=== PATIENT | male | born 1955 | race Caucasian/White ===

== ENCOUNTER 2023-05-30 00:14 | Inpatient (IN) | payer MEDICARE, BC ==
[~2023-05-30] VITALS: Ht 177.8 cm; Wt 57.2 kg
[2023-05-30] MEDS ORDERED: IV NS 0.9% 500 ML BAG IV ONE (01:00)
[2023-05-30 01:18] LABS: BASOPHILS % (AUTO) 0.3 % (0.0-2.0); EOSINOPHILS % (AUTO) 0.5 % (0.0-6.0); HEMATOCRIT 40 % (39-51); HEMOGLOBIN 13.2 g/dL (13.5-17.5); LYMPHOCYTES # (AUTO) 2.3 K/uL (0.8-4.8); LYMPHOCYTES % (AUTO) 25.4 % (20.0-44.0); MEAN CORPUSCULAR HEMOGLOBIN 32 PG (26.0-33.0); MEAN CORPUSCULAR HGB CONC 33 g/dl (31.0-36.0); MEAN CORPUSCULAR VOLUME 97 fL (80-96); MONOCYTES # (AUTO) 0.7 K/uL (0.1-1.30); MONOCYTES % (AUTO) 7.9 % (2.0-12.0); NEUTROPHILS % (AUTO) 65.9 % (43.0-81.0); PLATELET COUNT (AUTO) 249 K/uL (150-450); RED BLOOD CELL COUNT(AUTO) 4.12 MIL/uL (4.5-6.0); RED CELL DISTRIBUTION WIDTH 14.6 % (11.5-15.0); WHITE BLOOD COUNT (AUTO) 9.1 K/uL (4.3-11.0)
[2023-05-30 01:31] LABS: CALCIUM, SERUM 9.4 mg/dL (8.5-10.1); CARBON DIOXIDE 24 mmol/L (21-32); CHLORIDE 100 mmol/L (98-107); CREATININE 0.9 mg/dL (0.6-1.3); GLUCOSE 91 mg/dL (74-106); SODIUM SERUM 138 mmol/L (136-145); UREA NITROGEN, BLOOD 17 mg/dL (7-18)
[2023-05-30 01:43] LABS: POTASSIUM 2.8 mmol/L (3.5-5.1)
[2023-05-30] MEDS ORDERED: POTASSIUM CHLORIDE 20 MEQ TAB.PRT.SR PO ONE ×2 (03:30→03:38)
[2023-05-30] MEDS ORDERED: IV NS 0.9% 1,000 ML BAG IV ONE (03:30)
[2023-05-30] MEDS ORDERED: MAGNESIUM HYDROXIDE 30 ML UDC PO PRN (07:00)
[2023-05-30] MEDS ORDERED: MAG HYDROX/AL HYDROX/SIMETH 30 ML UDC PO PRN (07:00)
[2023-05-30] MEDS ORDERED: ZOLPIDEM TARTRATE 5 MG TABLET PO PRN (07:00)
[2023-05-30] MEDS ORDERED: ACETAMINOPHEN 325 MG TABLET PO PRN (07:00)
[2023-05-30] MEDS ORDERED: ONDANSETRON HCL/PF 4 MG/2 ML VIAL IVP PRN (07:00)
[2023-05-30] MEDS ORDERED: Z GUARD REMEDY 4 OZ OINT TP PRN (07:00)
[2023-05-30] MEDS: ENOXAPARIN SODIUM 40 MG/0.4 ML DISP.SYRIN SQ SCH ×2 (09:00→11:50)
[2023-05-30] MEDS ORDERED: TAMS-12 PO (09:23)
[2023-05-30] MEDS ORDERED: OLAN20TA3 PO (09:23)
[2023-05-30] MEDS ORDERED: MIRT-90 PO (09:23)
[2023-05-30] MEDS: PANTOPRAZOLE 40 MG TABLET.DR PO SCH (11:50)
[2023-05-30 12:42] LABS: CALCIUM, SERUM 9.4 mg/dL (8.5-10.1); POTASSIUM 4.3 mmol/L (3.5-5.1)
[2023-05-30 14:02] VITALS: BP 129/82; TEMP 98.2; O2SAT 97
[2023-05-30] MEDS: IV 1/2NS 1000 ML 1,000 ML IV PRN (14:51)
[2023-05-30 16:04] VITALS: BP 129/87; TEMP 98.1; O2SAT 96
[2023-05-30 19:00] VITALS: BP 114/76; TEMP 98.3; O2SAT 96
[2023-05-31] MEDS: IV 1/2NS 1000 ML 1,000 ML IV PRN (05:38)
[2023-05-31 06:22] LABS: BASOPHILS % (AUTO) 0.5 % (0.0-2.0); EOSINOPHILS # (AUTO) 0.1 K/uL (0.0-0.7); HEMATOCRIT 36 % (39-51); HEMOGLOBIN 11.8 g/dL (13.5-17.5); LYMPHOCYTES # (AUTO) 2.2 K/uL (0.8-4.8); LYMPHOCYTES % (AUTO) 33.2 % (20.0-44.0); MEAN CORPUSCULAR HEMOGLOBIN 32 PG (26.0-33.0); MEAN CORPUSCULAR HGB CONC 33 g/dl (31.0-36.0); MEAN CORPUSCULAR VOLUME 97 fL (80-96); MONOCYTES # (AUTO) 0.6 K/uL (0.1-1.30); MONOCYTES % (AUTO) 9.2 % (2.0-12.0); NEUTROPHILS # (AUTO) 3.8 K/uL (1.8-8.9); NEUTROPHILS % (AUTO) 56.1 % (43.0-81.0); PLATELET COUNT (AUTO) 212 K/uL (150-450); RED BLOOD CELL COUNT(AUTO) 3.66 MIL/uL (4.5-6.0); RED CELL DISTRIBUTION WIDTH 14.5 % (11.5-15.0); WHITE BLOOD COUNT (AUTO) 6.8 K/uL (4.3-11.0)
[2023-05-31 06:54] LABS: CALCIUM, SERUM 8.9 mg/dL (8.5-10.1); CREATININE 0.8 mg/dL (0.6-1.3); MAGNESIUM 1.9 mg/dL (1.8-2.4); PHOSPHORUS 2.4 mg/dL (2.5-4.9); POTASSIUM 3.3 mmol/L (3.5-5.1)
[2023-05-31 07:01] LABS: THYROID STIMULATING HORMONE 1.435 uIU/mL (0.358-3.74)
[2023-05-31 08:00] VITALS: BP 130/93; TEMP 98.1; O2SAT 98
[2023-05-31] MEDS ORDERED: POTASSIUM CHLORIDE 20 MEQ TAB.PRT.SR PO ONE (08:00)
[2023-05-31] MEDS: ENOXAPARIN SODIUM 40 MG/0.4 ML DISP.SYRIN SQ SCH (09:00)
[2023-05-31] MEDS: PANTOPRAZOLE 40 MG TABLET.DR PO SCH (09:22)
== END 2023-05-31 13:31 | disposition home or self-care (01) | DRG 640 ==
LOC: ER 00:15 → TELE 08:00
PROVIDERS: ADMIT Internal Medicine; ATTEND Internal Medicine
DX: E86.0 Dehydration (principal); E43 Unspecified severe protein-calorie malnutrition; Z68.1 Body mass index [BMI] 19.9 or less, adult; E87.6 Hypokalemia; E88.09 Other disorders of plasma-protein metabolism, not elsewhere classified; F32.A Depression, unspecified
CPT/HCPCS: 36415; 71045-TC; 80048-TC; 83735-TC; 84100-TC; 84443-TC; 84484-TC; 85025-TC; 92526; 92611-TC; A4223; G0378; J1650; J3490; J7030

== ENCOUNTER 2023-06-11 15:40 | Emergency (ER) | payer MEDICARE, BC ==
[~2023-06-11] VITALS: Ht 167.6 cm; Wt 59.0 kg
[~2023-06-11 15:40] MED LIST: MIRT-90 PO; OLAN20TA3 PO; TAMS-12 PO
[2023-06-11] MEDS ORDERED: IV NS 0.9% 1,000 ML BAG IV ONE (17:30)
[2023-06-11 17:50] LABS: BASOPHILS % (AUTO) 0.5 % (0.0-2.0); EOSINOPHILS % (AUTO) 0.1 % (0.0-6.0); HEMATOCRIT 39 % (39-51); HEMOGLOBIN 12.6 g/dL (13.5-17.5); LYMPHOCYTES # (AUTO) 1.6 K/uL (0.8-4.8); LYMPHOCYTES % (AUTO) 26.7 % (20.0-44.0); MEAN CORPUSCULAR HEMOGLOBIN 32 PG (26.0-33.0); MEAN CORPUSCULAR HGB CONC 33 g/dl (31.0-36.0); MEAN CORPUSCULAR VOLUME 99 fL (80-96); MONOCYTES # (AUTO) 0.5 K/uL (0.1-1.30); MONOCYTES % (AUTO) 8.7 % (2.0-12.0); NEUTROPHILS # (AUTO) 3.9 K/uL (1.8-8.9); PLATELET COUNT (AUTO) 236 K/uL (150-450); RED BLOOD CELL COUNT(AUTO) 3.89 MIL/uL (4.5-6.0); RED CELL DISTRIBUTION WIDTH 14.9 % (11.5-15.0); WHITE BLOOD COUNT (AUTO) 6.2 K/uL (4.3-11.0)
[2023-06-11 18:17] LABS: CALCIUM, SERUM 9.8 mg/dL (8.5-10.1); CARBON DIOXIDE 23 mmol/L (21-32); CHLORIDE 104 mmol/L (98-107); GLUCOSE 99 mg/dL (74-106); POTASSIUM 4.1 mmol/L (3.5-5.1); SODIUM SERUM 139 mmol/L (136-145); UREA NITROGEN, BLOOD 11 mg/dL (7-18)
[2023-06-11 18:23] LABS: ALANINE AMINOTRANSFERASE 24 U/L (12-78); ALBUMIN 4.6 g/dL (3.4-5.0); ALKALINE PHOSPHATASE 85 U/L (46-116); ASPARTATE AMINOTRANSFERASE 26 U/L (15-37); BILIRUBIN,DIRECT 0.4 mg/dL (0.0-0.2); BILIRUBIN,TOTAL 1.7 mg/dL (0.2-1.0); TOTAL PROTEIN, SERUM 7.7 g/dL (6.4-8.2)
[2023-06-11 18:28] LABS: SALICYLATE < 2.3 mg/dL (2.8-20.0)
[2023-06-11 18:29] LABS: ALCOHOL, BLOOD < 3 mg/dL (0-10)
[2023-06-11 18:51] LABS: ACETAMINOPHEN 0 ug/ml (10-30)
[2023-06-11 19:29] LABS: APPEARANCE,URINE CLEAR (CLEAR); BILIRUBIN,URINE 1+ (NEGATIVE); BLOOD, URINE NEGATIVE Ery/uL (NEGATIVE); COLOR,URINE ORANGE (YELLOW); KETONES,URINE 2+ mg/dL (NEGATIVE); LEUKOCYTE ESTERASE ,URINE NEGATIVE (NEGATIVE); NITRITE, URINE POSITIVE (NEGATIVE); PH,URINE 5.5 (5.0-8.0); PROTEIN,URINE TRACE mg/dl (NEGATIVE); UGLUCOSE TRACE mg/dL (NEGATIVE)
[2023-06-11 19:46] LABS: ADD URINE CULTURE YES; RBC,URINE 0-2 /HPF (0-2); WBC,URINE 0-2 /HPF (0-3)
[2023-06-11 19:47] LABS: BACTERIA,URINE 1+ /HPF (None Seen); CALCIUM OXALATE CRYSTALS,UR Few /HPF (None Seen); MUCUS,URINE Few /LPF (None Seen); SQUAMOUS EPITHELIAL CELL,UR None Seen /HPF (None Seen)
[2023-06-11 19:54] LABS: AMPHETAMINE, URINE NEGATIVE (NEGATIVE); BARBITURATE, URINE NEGATIVE (NEGATIVE); BENZODIAZEPINE, URINE NEGATIVE (NEGATIVE); CANNABINOID, URINE NEGATIVE (NEGATIVE); COCCAINE, URINE NEGATIVE (NEGATIVE); OPIATE, URINE NEGATIVE (NEGATIVE); PHENCYCLIDINE SCREEN,URINE NEGATIVE (NEGATIVE)
[2023-06-11 21:19] VITALS: BP 120/80; TEMP 97.9; O2SAT 97
[2023-07-09] MEDS ORDERED: LACT-246 PO (09:44)
== END 2023-06-11 21:19 | disposition home or self-care (01) ==
LOC: ER 15:56
DX: F32.A Depression, unspecified (principal); F41.9 Anxiety disorder, unspecified; Z20.822 Contact with and (suspected) exposure to COVID-19; Z79.899 Other long term (current) drug therapy; Z60.2 Problems related to living alone
CPT/HCPCS: 99285; 96360; 93005; 71045; 85025; 80048; 87086; 80076; 83735; 81001; 36415; 84484; 87426; 80143; 80320; 80307; J7030; C9803; G0480

== ENCOUNTER 2023-07-06 08:35 | Inpatient (IN) | payer MEDICARE, BC ==
[~2023-07-06] VITALS: Ht 177.8 cm; Wt 56.7 kg
[2023-07-06] MEDS ORDERED: LORAZEPAM 0.5 MG TABLET ONE (08:53)
[2023-07-06 09:00] VITALS: O2SAT 98
[2023-07-06] MEDS ORDERED: LORAZEPAM 1 MG TABLET PO ONE (09:00)
[2023-07-06 09:05] LABS: BASOPHILS % (AUTO) 0.8 % (0.0-2.0); EOSINOPHILS # (AUTO) 0.1 K/uL (0.0-0.7); EOSINOPHILS % (AUTO) 1.2 % (0.0-6.0); HEMATOCRIT 40 % (39-51); HEMOGLOBIN 13.5 g/dL (13.5-17.5); LYMPHOCYTES # (AUTO) 1.6 K/uL (0.8-4.8); MEAN CORPUSCULAR HEMOGLOBIN 34 PG (26.0-33.0); MEAN CORPUSCULAR HGB CONC 33 g/dl (31.0-36.0); MEAN CORPUSCULAR VOLUME 101 fL (80-96); MONOCYTES # (AUTO) 0.5 K/uL (0.1-1.30); MONOCYTES % (AUTO) 9.2 % (2.0-12.0); NEUTROPHILS # (AUTO) 3.5 K/uL (1.8-8.9); NEUTROPHILS % (AUTO) 60.8 % (43.0-81.0); PLATELET COUNT (AUTO) 248 K/uL (150-450); RED BLOOD CELL COUNT(AUTO) 3.97 MIL/uL (4.5-6.0); RED CELL DISTRIBUTION WIDTH 14.4 % (11.5-15.0); WHITE BLOOD COUNT (AUTO) 5.8 K/uL (4.3-11.0)
[2023-07-06 09:16] LABS: CALCIUM, SERUM 9.4 mg/dL (8.5-10.1); CARBON DIOXIDE 32 mmol/L (21-32); CHLORIDE 106 mmol/L (98-107); CREATININE 1.2 mg/dL (0.6-1.3); GLUCOSE 116 mg/dL (74-106); POTASSIUM 4.1 mmol/L (3.5-5.1); SODIUM SERUM 144 mmol/L (136-145); UREA NITROGEN, BLOOD 22 mg/dL (7-18)
[2023-07-06 09:22] LABS: ALANINE AMINOTRANSFERASE 24 U/L (12-78); ALBUMIN 3.9 g/dL (3.4-5.0); ALKALINE PHOSPHATASE 104 U/L (46-116); ASPARTATE AMINOTRANSFERASE 15 U/L (15-37); BILIRUBIN,DIRECT 0.1 mg/dL (0.0-0.2); BILIRUBIN,TOTAL 0.5 mg/dL (0.2-1.0)
[2023-07-06] MEDS ORDERED: ONDANSETRON HCL/PF 4 MG/2 ML VIAL IVP PRN (10:30)
[2023-07-06] MEDS ORDERED: ZOLPIDEM TARTRATE 5 MG TABLET PO PRN (10:30)
[2023-07-06] MEDS ORDERED: IV NS 0.9% 1,000 ML IV ONE (10:30)
[2023-07-06] MEDS ORDERED: MAGNESIUM HYDROXIDE 30 ML UDC PO PRN (10:30)
[2023-07-06] MEDS ORDERED: Z GUARD REMEDY 4 OZ OINT TP PRN (10:30)
[2023-07-06] MEDS ORDERED: ACETAMINOPHEN 325 MG TABLET PO PRN (10:30)
[2023-07-06] MEDS ORDERED: MAG HYDROX/AL HYDROX/SIMETH 30 ML UDC PO PRN (10:30)
[2023-07-06] MEDS ORDERED: CLON1TAB PO (10:41)
[2023-07-06] MEDS ORDERED: CITA20TA19 PO (10:41)
[2023-07-06 16:00] VITALS: BP 117/95; TEMP 97.7; O2SAT 96
[2023-07-06 20:00] VITALS: BP 115/80; TEMP 97.7; O2SAT 95
[2023-07-06] MEDS: TAMSULOSIN 0.4 MG CAP.SR.24H PO SCH (21:14)
[2023-07-06] MEDS: CITALOPRAM HYDROBROMIDE 20 MG TABLET PO SCH (21:15)
[2023-07-06] MEDS: clonazePAM 1 MG TABLET PO SCH (21:16)
[2023-07-07 06:04] LABS: APPEARANCE,URINE CLEAR (CLEAR); BILIRUBIN,URINE NEGATIVE (NEGATIVE); BLOOD, URINE NEGATIVE Ery/uL (NEGATIVE); COLOR,URINE AMBER (YELLOW); KETONES,URINE NEGATIVE (NEGATIVE); LEUKOCYTE ESTERASE ,URINE NEGATIVE (NEGATIVE); NITRITE, URINE POSITIVE (NEGATIVE); PH,URINE 6.5 (5.0-8.0); PROTEIN,URINE TRACE mg/dl (NEGATIVE); UGLUCOSE TRACE mg/dL (NEGATIVE)
[2023-07-07 06:49] LABS: BASOPHILS % (AUTO) 0.9 % (0.0-2.0); EOSINOPHILS # (AUTO) 0.1 K/uL (0.0-0.7); EOSINOPHILS % (AUTO) 1.6 % (0.0-6.0); HEMATOCRIT 36 % (39-51); HEMOGLOBIN 11.6 g/dL (13.5-17.5); LYMPHOCYTES % (AUTO) 38.7 % (20.0-44.0); MEAN CORPUSCULAR HEMOGLOBIN 34 PG (26.0-33.0); MEAN CORPUSCULAR HGB CONC 33 g/dl (31.0-36.0); MEAN CORPUSCULAR VOLUME 103 fL (80-96); MONOCYTES # (AUTO) 0.5 K/uL (0.1-1.30); MONOCYTES % (AUTO) 9.3 % (2.0-12.0); NEUTROPHILS # (AUTO) 2.5 K/uL (1.8-8.9); NEUTROPHILS % (AUTO) 49.5 % (43.0-81.0); PLATELET COUNT (AUTO) 183 K/uL (150-450); RED BLOOD CELL COUNT(AUTO) 3.45 MIL/uL (4.5-6.0); RED CELL DISTRIBUTION WIDTH 14.4 % (11.5-15.0); WHITE BLOOD COUNT (AUTO) 5.1 K/uL (4.3-11.0)
[2023-07-07 07:08] LABS: CALCIUM, SERUM 8.5 mg/dL (8.5-10.1); CREATININE 0.7 mg/dL (0.6-1.3); MAGNESIUM 2.2 mg/dL (1.8-2.4); PHOSPHORUS 3.5 mg/dL (2.5-4.9)
[2023-07-07 07:30] VITALS: BP 111/77; TEMP 97.7; O2SAT 99
[2023-07-07 07:32] LABS: RBC,URINE NONE SEEN /HPF (0-2); WBC,URINE 0-2 /HPF (0-3)
[2023-07-07 07:33] LABS: ADD URINE CULTURE YES; BACTERIA,URINE 1+ /HPF (None Seen); MUCUS,URINE Few /LPF (None Seen); SQUAMOUS EPITHELIAL CELL,UR None Seen /HPF (None Seen)
[2023-07-07 08:29] LABS: EOSINOPHILS % (MANUAL) 1 % (0-4); LYMPHOCYTES % (MANUAL) 48 % (16-48); MONOCYTES % (MANUAL) 4 % (0-11.0); NEUTROPHILS % (MANUAL) 47 (42-76); PLATELET ESTIMATE ADEQUATE
[2023-07-07] MEDS: clonazePAM 1 MG TABLET PO SCH ×2 (09:04→16:43)
[2023-07-07] MEDS: CITALOPRAM HYDROBROMIDE 20 MG TABLET PO SCH (09:04)
[2023-07-07 16:00] VITALS: BP 111/78; TEMP 98.2; O2SAT 95
[2023-07-07 20:00] VITALS: BP 109/82; TEMP 97.5; O2SAT 96
[2023-07-07] MEDS: TAMSULOSIN 0.4 MG CAP.SR.24H PO SCH (22:27)
[2023-07-08 07:00] VITALS: BP 93/62; TEMP 97.5; O2SAT 100
[2023-07-08] MEDS: clonazePAM 1 MG TABLET PO SCH ×2 (08:41→16:45)
[2023-07-08] MEDS: CITALOPRAM HYDROBROMIDE 20 MG TABLET PO SCH (08:41)
[2023-07-08] MEDS: ENSURE ENLIVE 237 ML LIQUID (VANILLA) PO SCH (08:41)
[2023-07-08 16:00] VITALS: BP 117/83; TEMP 97.3; O2SAT 98
[2023-07-08 20:00] VITALS: BP 114/85; TEMP 97.7; O2SAT 98
[2023-07-08] MEDS: TAMSULOSIN 0.4 MG CAP.SR.24H PO SCH (21:03)
[2023-07-09 08:00] VITALS: BP 128/91; TEMP 98.2; O2SAT 100
[2023-07-09] MEDS: clonazePAM 1 MG TABLET PO SCH (08:58)
[2023-07-09] MEDS: CITALOPRAM HYDROBROMIDE 20 MG TABLET PO SCH (08:58)
[2023-07-09] MEDS: ENSURE ENLIVE 237 ML LIQUID (VANILLA) PO SCH (08:58)
[2023-07-09] MEDS ORDERED: FLUTICASONE PROPIONATE 16 GM BOTTLE NS SCH (09:00)
[2023-07-09] MEDS ORDERED: LACT-246 PO (09:44)
== END 2023-07-09 13:40 | DRG 641 ==
LOC: ER 08:37 → MED 11:11
PROVIDERS: ADMIT Nurse Practitioner Acute Care; ATTEND Nurse Practitioner Acute Care
DX: E86.0 Dehydration (principal); E78.5 Hyperlipidemia, unspecified; F32.A Depression, unspecified; N40.0 Benign prostatic hyperplasia without lower urinary tract symptoms; Z79.899 Other long term (current) drug therapy; F41.0 Panic disorder [episodic paroxysmal anxiety]; F41.1 Generalized anxiety disorder; F13.10 Sedative, hypnotic or anxiolytic abuse, uncomplicated
CPT/HCPCS: 36415; 71045-TC; 80048-TC; 80061-TC; 80076-TC; 81001; 83735-TC; 84100-TC; 84484-TC; 85025-TC; 87086-TC; 97112-TC; 97116-TC; 97530-TC; G0378; J7030

== ENCOUNTER 2023-07-11 15:57 | Emergency (ER) | payer MEDICARE, BC ==
[~2023-07-11] VITALS: Ht 172.7 cm; Wt 52.6 kg
[~2023-07-11 15:57] MED LIST changes: +CITA20TA19 PO; +CLON1TAB PO; +LACT-246 PO; -MIRT-90 PO; -OLAN20TA3 PO
[2023-07-11 16:08] VITALS: TEMP 98.2
[2023-07-11] MEDS ORDERED: LORAZEPAM 1 MG TABLET ONE (16:51)
[2023-07-11] MEDS ORDERED: LORAZEPAM 1 MG TABLET PO ONE (17:00)
[2023-07-11 18:07] VITALS: BP 124/81; O2SAT 96
== END 2023-07-11 18:07 | disposition home or self-care (01) ==
LOC: ER 16:18
DX: F41.9 Anxiety disorder, unspecified (principal); Z79.899 Other long term (current) drug therapy; Z60.2 Problems related to living alone
CPT/HCPCS: 99283; 71045; A4223

== ENCOUNTER 2023-07-28 15:54 | Inpatient (IN) | payer MEDICARE, BC ==
[~2023-07-28] VITALS: Ht 182.9 cm; Wt 46.3 kg
[2023-07-28] MEDS ORDERED: IV NS 0.9% 1,000 ML BAG IV ONE (17:30)
[2023-07-28 17:32] LABS: BASOPHILS % (AUTO) 0.1 % (0.0-2.0); HEMATOCRIT 50 % (39-51); HEMOGLOBIN 16.2 g/dL (13.5-17.5); LYMPHOCYTES # (AUTO) 1.6 K/uL (0.8-4.8); LYMPHOCYTES % (AUTO) 16.1 % (20.0-44.0); MEAN CORPUSCULAR HEMOGLOBIN 33 PG (26.0-33.0); MEAN CORPUSCULAR HGB CONC 32 g/dl (31.0-36.0); MEAN CORPUSCULAR VOLUME 101 fL (80-96); MONOCYTES # (AUTO) 0.9 K/uL (0.1-1.30); MONOCYTES % (AUTO) 8.7 % (2.0-12.0); NEUTROPHILS # (AUTO) 7.4 K/uL (1.8-8.9); NEUTROPHILS % (AUTO) 75.1 % (43.0-81.0); PLATELET COUNT (AUTO) 226 K/uL (150-450); RED BLOOD CELL COUNT(AUTO) 4.97 MIL/uL (4.5-6.0); RED CELL DISTRIBUTION WIDTH 13.6 % (11.5-15.0); WHITE BLOOD COUNT (AUTO) 9.8 K/uL (4.3-11.0)
[2023-07-28 17:41] LABS: APPEARANCE,URINE CLEAR (CLEAR); BILIRUBIN,URINE 2+ (NEGATIVE); BLOOD, URINE NEGATIVE Ery/uL (NEGATIVE); COLOR,URINE YELLOW (YELLOW); KETONES,URINE 2+ mg/dL (NEGATIVE); LEUKOCYTE ESTERASE ,URINE NEGATIVE (NEGATIVE); NITRITE, URINE NEGATIVE (NEGATIVE); PROTEIN,URINE 1+ mg/dl (NEGATIVE); UGLUCOSE NEGATIVE (NEGATIVE)
[2023-07-28 17:52] LABS: ALANINE AMINOTRANSFERASE 30 U/L (12-78); ALBUMIN 5.1 g/dL (3.4-5.0); ALKALINE PHOSPHATASE 80 U/L (46-116); ASPARTATE AMINOTRANSFERASE 34 U/L (15-37); BILIRUBIN,DIRECT 0.4 mg/dL (0.0-0.2); BILIRUBIN,TOTAL 1.9 mg/dL (0.2-1.0); CARBON DIOXIDE 29 mmol/L (21-32); TOTAL PROTEIN, SERUM 8.5 g/dL (6.4-8.2)
[2023-07-28 17:53] LABS: ACETAMINOPHEN 0 ug/ml (10-30); ALCOHOL, BLOOD < 3 mg/dL (0-10); CALCIUM, SERUM 10.8 mg/dL (8.5-10.1); CHLORIDE 112 mmol/L (98-107); CREATININE 1.5 mg/dL (0.6-1.3); GLUCOSE 117 mg/dL (74-106); POTASSIUM 3.1 mmol/L (3.5-5.1); SALICYLATE 0.3 mg/dL (2.8-20.0); SODIUM SERUM 158 mmol/L (136-145); UREA NITROGEN, BLOOD 51 mg/dL (7-18)
[2023-07-28 17:55] LABS: AMPHETAMINE, URINE NEGATIVE (NEGATIVE); BARBITURATE, URINE NEGATIVE (NEGATIVE); BENZODIAZEPINE, URINE NEGATIVE (NEGATIVE); CANNABINOID, URINE NEGATIVE (NEGATIVE); COCCAINE, URINE NEGATIVE (NEGATIVE); OPIATE, URINE NEGATIVE (NEGATIVE); PHENCYCLIDINE SCREEN,URINE NEGATIVE (NEGATIVE)
[2023-07-28 17:57] LABS: LACTIC ACID 2.6 mmol/L (0.4-2.0)
[2023-07-28 18:10] LABS: ADD URINE CULTURE NO; BACTERIA,URINE 1+ /HPF (None Seen); MUCUS,URINE Moderate /LPF (None Seen); RBC,URINE NONE SEEN /HPF (0-2); SQUAMOUS EPITHELIAL CELL,UR None Seen /HPF (None Seen); WBC,URINE NONE SEEN /HPF (0-3)
[2023-07-28] MEDS ORDERED: ACETAMINOPHEN 325 MG TABLET PO PRN (18:30)
[2023-07-28] MEDS ORDERED: MORPHINE SULFATE INJ 2 MG/ML DISP.SYRIN IV PRN (18:30)
[2023-07-28] MEDS ORDERED: IV D5/0.45 NACL 500 ML IV PRN (18:30)
[2023-07-28] MEDS ORDERED: ONDANSETRON HCL/PF 4 MG/2 ML VIAL IVP PRN (18:30)
[2023-07-28 20:56] LABS: BILIRUBIN,TOTAL 1.5 mg/dL (0.2-1.0); CALCIUM, SERUM 9.5 mg/dL (8.5-10.1); CREATININE 1.3 mg/dL (0.6-1.3); POTASSIUM 3.2 mmol/L (3.5-5.1); TOTAL PROTEIN, SERUM 6.8 g/dL (6.4-8.2)
[2023-07-28] MEDS ORDERED: HEPARIN SODIUM, PORCINE 5000 UNITS/1 ML VIAL ONE (21:45)
[2023-07-28] MEDS ORDERED: TAMSULOSIN 0.4 MG CAP.SR.24H ONE (21:52)
[2023-07-28] MEDS: HEPARIN SODIUM, PORCINE 5000 UNITS/1 ML VIAL SQ SCH (21:56)
[2023-07-28] MEDS: TAMSULOSIN 0.4 MG CAP.SR.24H PO SCH (21:57)
[2023-07-29 02:37] LABS: ALBUMIN 3.9 g/dL (3.4-5.0); BILIRUBIN,TOTAL 1.5 mg/dL (0.2-1.0); CALCIUM, SERUM 9.5 mg/dL (8.5-10.1); CREATININE 1.1 mg/dL (0.6-1.3); TOTAL PROTEIN, SERUM 6.6 g/dL (6.4-8.2)
[2023-07-29] MEDS ORDERED: IV D5W 1,000 ML IV PRN (07:30)
[2023-07-29 08:00] VITALS: BP 130/95; TEMP 98.5; O2SAT 95
[2023-07-29] MEDS ORDERED: LORAZEPAM INJ 2 MG/ML VIAL IV PRN (08:00)
[2023-07-29] MEDS: clonazePAM 1 MG TABLET PO SCH ×2 (08:11→16:16)
[2023-07-29] MEDS: HEPARIN SODIUM, PORCINE 5000 UNITS/1 ML VIAL SQ SCH ×2 (08:12→21:40)
[2023-07-29 08:33] LABS: BASOPHILS % (AUTO) 0.1 % (0.0-2.0); EOSINOPHILS % (AUTO) 0.1 % (0.0-6.0); HEMATOCRIT 41 % (39-51); HEMOGLOBIN 13.1 g/dL (13.5-17.5); LYMPHOCYTES # (AUTO) 1.8 K/uL (0.8-4.8); MEAN CORPUSCULAR HEMOGLOBIN 33 PG (26.0-33.0); MEAN CORPUSCULAR HGB CONC 32 g/dl (31.0-36.0); MEAN CORPUSCULAR VOLUME 103 fL (80-96); MONOCYTES # (AUTO) 0.7 K/uL (0.1-1.30); MONOCYTES % (AUTO) 8.8 % (2.0-12.0); NEUTROPHILS # (AUTO) 5.5 K/uL (1.8-8.9); PLATELET COUNT (AUTO) 182 K/uL (150-450); RED CELL DISTRIBUTION WIDTH 13.6 % (11.5-15.0)
[2023-07-29 08:48] LABS: ALBUMIN 3.8 g/dL (3.4-5.0); BILIRUBIN,TOTAL 1.5 mg/dL (0.2-1.0); CALCIUM, SERUM 9.6 mg/dL (8.5-10.1); MAGNESIUM 2.6 mg/dL (1.8-2.4); PHOSPHORUS 2.3 mg/dL (2.5-4.9); POTASSIUM 3.9 mmol/L (3.5-5.1); TOTAL PROTEIN, SERUM 6.6 g/dL (6.4-8.2)
[2023-07-29] MEDS: POTASSIUM CL. PREMIX PERIPHER. 50 ML IV SCH ×4 (08:53→13:56)
[2023-07-29] MEDS ORDERED: CITALOPRAM HYDROBROMIDE 20 MG TABLET PO SCH (09:00)
[2023-07-29] MEDS: Potassium Chloride 20 MEQ in IV D5W 1,000 ML IV SCH ×2 (09:12→16:16)
[2023-07-29] MEDS ORDERED: OLANZAPINE 2.5 MG TABLET PO PRN (11:30)
[2023-07-29 12:00] VITALS: BP 138/95; TEMP 98.6; O2SAT 95
[2023-07-29 15:18] LABS: ALBUMIN 3.4 g/dL (3.4-5.0); BILIRUBIN,TOTAL 1.2 mg/dL (0.2-1.0); CALCIUM, SERUM 9.3 mg/dL (8.5-10.1); CREATININE 1.1 mg/dL (0.6-1.3); POTASSIUM 3.3 mmol/L (3.5-5.1); TOTAL PROTEIN, SERUM 6.1 g/dL (6.4-8.2)
[2023-07-29 16:00] VITALS: BP 127/67; TEMP 98.9; O2SAT 95
[2023-07-29] MEDS ORDERED: K PHOS NEUTRAL 250 MG TABLET PO ONE (17:00)
[2023-07-29 20:00] VITALS: BP 100/73; TEMP 97.2; O2SAT 99
[2023-07-29 20:48] LABS: ALBUMIN 3.2 g/dL (3.4-5.0); CREATININE 1.2 mg/dL (0.6-1.3); POTASSIUM 4.1 mmol/L (3.5-5.1); TOTAL PROTEIN, SERUM 5.6 g/dL (6.4-8.2)
[2023-07-29] MEDS: TAMSULOSIN 0.4 MG CAP.SR.24H PO SCH (21:41)
[2023-07-29] MEDS: OLANZAPINE 2.5 MG TABLET PO SCH (21:41)
[2023-07-30] VITALS: BP 104/59; TEMP 97.7; O2SAT 95
[2023-07-30 02:17] LABS: ALBUMIN 2.8 g/dL (3.4-5.0); BILIRUBIN,TOTAL 0.8 mg/dL (0.2-1.0); CALCIUM, SERUM 8.7 mg/dL (8.5-10.1); POTASSIUM 3.1 mmol/L (3.5-5.1)
[2023-07-30] MEDS: Potassium Chloride 20 MEQ in IV D5W 1,000 ML IV SCH (02:28)
[2023-07-30 04:00] VITALS: BP 105/60; TEMP 97.5; O2SAT 98
[2023-07-30 07:45] LABS: CALCIUM, SERUM 8.9 mg/dL (8.5-10.1); CREATININE 0.9 mg/dL (0.6-1.3); POTASSIUM 3.1 mmol/L (3.5-5.1); TOTAL PROTEIN, SERUM 5.4 g/dL (6.4-8.2)
[2023-07-30 08:00] VITALS: BP 115/65; TEMP 97.8; O2SAT 98
[2023-07-30] MEDS: HEPARIN SODIUM, PORCINE 5000 UNITS/1 ML VIAL SQ SCH ×3 (08:39→21:55)
[2023-07-30] MEDS: clonazePAM 1 MG TABLET PO SCH ×2 (08:39→16:11)
[2023-07-30] MEDS ORDERED: FLUOXETINE HCL 20 MG CAPSULE PO SCH (09:00)
[2023-07-30] MEDS ORDERED: FLUO20CA36 PO (09:11)
[2023-07-30] MEDS ORDERED: CLON1TAB12 PO (09:11)
[2023-07-30] MEDS: ENSURE ENLIVE 237 ML LIQUID (VANILLA) PO SCH ×3 (09:14→16:11)
[2023-07-30] MEDS ORDERED: POTASSIUM CHLORIDE 20 MEQ TAB.PRT.SR PO ONE (11:30)
[2023-07-30] MEDS ORDERED: HALOPERIDOL LACTATE INJ 5 MG/ML VIAL IM ONE (11:30)
[2023-07-30 12:00] VITALS: BP 125/65; TEMP 97.7; O2SAT 98
[2023-07-30 14:23] LABS: ALBUMIN 3.1 g/dL (3.4-5.0); CALCIUM, SERUM 9.2 mg/dL (8.5-10.1); CREATININE 0.9 mg/dL (0.6-1.3); POTASSIUM 3.1 mmol/L (3.5-5.1); TOTAL PROTEIN, SERUM 5.5 g/dL (6.4-8.2)
[2023-07-30 16:00] VITALS: BP 115/65; TEMP 97.8; O2SAT 98
[2023-07-30 20:32] LABS: ALBUMIN 3.1 g/dL (3.4-5.0); BILIRUBIN,TOTAL 0.7 mg/dL (0.2-1.0); CALCIUM, SERUM 9.2 mg/dL (8.5-10.1); CREATININE 0.9 mg/dL (0.6-1.3); POTASSIUM 3.8 mmol/L (3.5-5.1); TOTAL PROTEIN, SERUM 5.5 g/dL (6.4-8.2)
[2023-07-30] MEDS: OLANZAPINE 2.5 MG TABLET PO SCH ×2 (22:00→22:03)
[2023-07-30] MEDS: TAMSULOSIN 0.4 MG CAP.SR.24H PO SCH ×2 (22:00→22:03)
[2023-07-31] MEDS ORDERED: FLUO20CA42 PO (07:32)
[2023-07-31] MEDS ORDERED: OLAN2.5T3 PO ×2 (07:32)
[2023-07-31] MEDS ORDERED: HEPA50008 SQ (07:32)
[2023-07-31] MEDS ORDERED: ACET-868 PO (07:32)
[2023-07-31] MEDS ORDERED: LACT-246 PO (07:32)
[2023-07-31] MEDS ORDERED: CLON1TAB12 PO (07:32)
== END 2023-07-30 22:51 | DRG 640 ==
LOC: ER 15:57 → GPS 19:48 → TRANSITION 07-29 00:21 → TELE1 07-29 07:37 → MEDSG1 07-30 09:55
PROVIDERS: ADMIT Internal Medicine; ATTEND Internal Medicine
DX: E87.0 Hyperosmolality and hypernatremia (principal); N17.0 Acute kidney failure with tubular necrosis; F32.3 Major depressive disorder, single episode, severe with psychotic features; Z68.1 Body mass index [BMI] 19.9 or less, adult; R45.851 Suicidal ideations; R62.7 Adult failure to thrive; E86.0 Dehydration; E87.20 Acidosis, unspecified; E87.6 Hypokalemia; F32.A Depression, unspecified; F41.9 Anxiety disorder, unspecified; G47.00 Insomnia, unspecified; N40.0 Benign prostatic hyperplasia without lower urinary tract symptoms; E80.6 Other disorders of bilirubin metabolism; F41.0 Panic disorder [episodic paroxysmal anxiety]
CPT/HCPCS: 36415; 71045-TC; 76700-TC; 78226; 80048-TC; 80053-TC; 80076-TC; 81001; 82962-TC; 83605-TC; 83735-TC; 84100-TC; 84300-TC; 85025-TC; 87040-TC; 87086-TC; A4223; A9537; C9803; G0378; G0480; J1644; J2060; J3480; J3490; J7030; J7040; J7050; J7070

== ENCOUNTER 2023-07-31 00:39 | Inpatient (IN) | payer MEDICARE, BC ==
[~2023-07-31] VITALS: Ht 182.9 cm; Wt 46.3 kg
[~2023-07-31 00:39] MED LIST changes: -CLON1TAB PO; +CLON1TAB12 PO; +FLUO20CA36 PO; -LACT-246 PO
[2023-07-31] MEDS ORDERED: MAGNESIUM HYDROXIDE 30 ML UDC PO PRN (01:30)
[2023-07-31] MEDS ORDERED: TEMAZEPAM 7.5 MG CAPSULE PO PRN (01:30)
[2023-07-31] MEDS ORDERED: LORAZEPAM 0.5 MG TABLET PO PRN ×2 (01:30→11:30)
[2023-07-31] MEDS ORDERED: BLOOD SUGAR DIAGNOSTIC 1 EACH STRIP IN ONE (01:30)
[2023-07-31] MEDS ORDERED: MAG HYDROX/AL HYDROX/SIMETH 30 ML UDC PO PRN (01:30)
[2023-07-31] MEDS ORDERED: ACETAMINOPHEN 325 MG TABLET PO PRN ×2 (01:30→10:00)
[2023-07-31 03:33] VITALS: BP 110/71; TEMP 98.1; O2SAT 0
[2023-07-31] MEDS ORDERED: ACET-868 PO (07:32)
[2023-07-31] MEDS ORDERED: HEPA50008 SQ (07:32)
[2023-07-31] MEDS ORDERED: LACT-246 PO (07:32)
[2023-07-31] MEDS ORDERED: CLON1TAB12 PO (07:32)
[2023-07-31] MEDS ORDERED: OLAN2.5T3 PO ×2 (07:32)
[2023-07-31] MEDS ORDERED: FLUO20CA42 PO (07:32)
[2023-07-31 08:00] VITALS: BP 110/78; TEMP 97.6; O2SAT 100
[2023-07-31] MEDS: FLUOXETINE HCL 20 MG CAPSULE PO SCH (12:08)
[2023-07-31] MEDS: ENSURE ENLIVE 237 ML LIQUID (VANILLA) PO SCH ×2 (12:12→17:23)
[2023-07-31 16:00] VITALS: BP 125/80; TEMP 98; O2SAT 98
[2023-07-31 20:00] VITALS: BP 118/74; TEMP 97.6; O2SAT 100
[2023-07-31] MEDS: TAMSULOSIN 0.4 MG CAP.SR.24H PO SCH (21:34)
[2023-07-31] MEDS: OLANZAPINE 2.5 MG TABLET PO SCH (21:34)
[2023-08-01 08:00] VITALS: BP 128/83; TEMP 97.7; O2SAT 93
[2023-08-01 08:12] LABS: CALCIUM, SERUM 8.9 mg/dL (8.5-10.1); CREATININE 0.8 mg/dL (0.6-1.3); POTASSIUM 3.1 mmol/L (3.5-5.1)
[2023-08-01] MEDS: FLUOXETINE HCL 20 MG CAPSULE PO SCH (08:57)
[2023-08-01] MEDS: ENSURE ENLIVE 237 ML LIQUID (VANILLA) PO SCH ×3 (08:57→16:17)
[2023-08-01 16:00] VITALS: BP 122/84; TEMP 97.8; O2SAT 97
[2023-08-01 20:08] VITALS: BP 134/84; TEMP 98.1; O2SAT 97
[2023-08-01] MEDS ORDERED: POTASSIUM CHLORIDE 20 MEQ TAB.PRT.SR PO ONE (20:30)
[2023-08-01] MEDS: TAMSULOSIN 0.4 MG CAP.SR.24H PO SCH (21:18)
[2023-08-01] MEDS: OLANZAPINE 2.5 MG TABLET PO SCH (21:18)
[2023-08-02 08:00] VITALS: BP 128/68; TEMP 97.8; O2SAT 99
[2023-08-02] MEDS: ENSURE ENLIVE 237 ML LIQUID (VANILLA) PO SCH ×4 (08:24→17:39)
[2023-08-02] MEDS: FLUOXETINE HCL 20 MG CAPSULE PO SCH (08:34)
[2023-08-02] MEDS ORDERED: POTASSIUM CHLORIDE 20 MEQ TAB.PRT.SR PO ONE (12:00)
[2023-08-02 16:00] VITALS: BP 127/80; TEMP 97.8; O2SAT 96
[2023-08-02 20:00] VITALS: BP 134/84; TEMP 98.1; O2SAT 97
[2023-08-02] MEDS: TAMSULOSIN 0.4 MG CAP.SR.24H PO SCH (21:03)
[2023-08-02] MEDS: OLANZAPINE 2.5 MG TABLET PO SCH (21:03)
[2023-08-03 08:00] VITALS: BP 114/74; TEMP 98.1; O2SAT 98
[2023-08-03] MEDS: ENSURE ENLIVE 237 ML LIQUID (VANILLA) PO SCH ×6 (08:00→17:00)
[2023-08-03] MEDS: FLUOXETINE HCL 20 MG CAPSULE PO SCH (08:54)
[2023-08-03 16:00] VITALS: BP 115/79; TEMP 98.6; O2SAT 96
[2023-08-03 20:41] VITALS: BP 139/89; TEMP 98.2; O2SAT 97
[2023-08-03] MEDS: OLANZAPINE ZYDIS 5 MG TAB.RAPDIS PO SCH (21:36)
[2023-08-03] MEDS: TAMSULOSIN 0.4 MG CAP.SR.24H PO SCH (21:36)
[2023-08-04 08:00] VITALS: BP 127/78; TEMP 97.8; O2SAT 96
[2023-08-04] MEDS: ENSURE ENLIVE 237 ML LIQUID (VANILLA) PO SCH ×3 (08:38→17:16)
[2023-08-04] MEDS: Fluoxetine 10 mg capsule PO SCH (08:38)
[2023-08-04] MEDS ORDERED: FLUOXETINE HCL 20 MG CAPSULE PO SCH (09:00)
[2023-08-04 16:05] VITALS: BP 112/72; TEMP 97.7; O2SAT 94
[2023-08-04 20:00] VITALS: BP 100/68; TEMP 98.2; O2SAT 100
[2023-08-04] MEDS: OLANZAPINE ZYDIS 5 MG TAB.RAPDIS PO SCH (21:15)
[2023-08-04] MEDS: TAMSULOSIN 0.4 MG CAP.SR.24H PO SCH (21:15)
[2023-08-05 08:00] VITALS: BP 134/88; TEMP 98.7; O2SAT 98
[2023-08-05] MEDS: ENSURE ENLIVE 237 ML LIQUID (VANILLA) PO SCH ×3 (08:38→16:55)
[2023-08-05] MEDS: Fluoxetine 10 mg capsule PO SCH (08:38)
[2023-08-05 16:00] VITALS: BP 100/64; TEMP 98.6; O2SAT 97
[2023-08-05 20:19] VITALS: BP 108/80; TEMP 98.4; O2SAT 96
[2023-08-05] MEDS: OLANZAPINE ZYDIS 5 MG TAB.RAPDIS PO SCH (21:42)
[2023-08-05] MEDS: TAMSULOSIN 0.4 MG CAP.SR.24H PO SCH (21:42)
[2023-08-06 08:00] VITALS: BP 115/74; TEMP 97.8; O2SAT 96
[2023-08-06] MEDS: ENSURE ENLIVE 237 ML LIQUID (VANILLA) PO SCH ×3 (08:17→17:19)
[2023-08-06] MEDS: FLUOXETINE HCL 20 MG CAPSULE PO SCH (08:51)
[2023-08-06 15:01] LABS: BASOPHILS % (AUTO) 0.4 % (0.0-2.0); EOSINOPHILS % (AUTO) 0.2 % (0.0-6.0); HEMATOCRIT 40 % (39-51); HEMOGLOBIN 13.1 g/dL (13.5-17.5); LYMPHOCYTES # (AUTO) 1.8 K/uL (0.8-4.8); LYMPHOCYTES % (AUTO) 32.1 % (20.0-44.0); MEAN CORPUSCULAR HEMOGLOBIN 33 PG (26.0-33.0); MEAN CORPUSCULAR HGB CONC 33 g/dl (31.0-36.0); MEAN CORPUSCULAR VOLUME 99 fL (80-96); MONOCYTES # (AUTO) 0.6 K/uL (0.1-1.30); NEUTROPHILS # (AUTO) 3.2 K/uL (1.8-8.9); NEUTROPHILS % (AUTO) 57.3 % (43.0-81.0); PLATELET COUNT (AUTO) 201 K/uL (150-450); RED BLOOD CELL COUNT(AUTO) 3.99 MIL/uL (4.5-6.0); RED CELL DISTRIBUTION WIDTH 13.4 % (11.5-15.0); WHITE BLOOD COUNT (AUTO) 5.6 K/uL (4.3-11.0)
[2023-08-06 15:12] LABS: ALBUMIN 3.4 g/dL (3.4-5.0); BILIRUBIN,TOTAL 0.6 mg/dL (0.2-1.0); CALCIUM, SERUM 9.1 mg/dL (8.5-10.1); CREATININE 0.6 mg/dL (0.6-1.3); PHOSPHORUS 3.4 mg/dL (2.5-4.9); POTASSIUM 3.6 mmol/L (3.5-5.1); TOTAL PROTEIN, SERUM 6.3 g/dL (6.4-8.2)
[2023-08-06 16:00] VITALS: BP 117/76; TEMP 97.7; O2SAT 94
[2023-08-06 20:00] VITALS: BP 115/76; TEMP 98.3; O2SAT 98
[2023-08-06] MEDS: TAMSULOSIN 0.4 MG CAP.SR.24H PO SCH (21:08)
[2023-08-06] MEDS: OLANZAPINE ZYDIS 5 MG TAB.RAPDIS PO SCH (21:08)
[2023-08-07 08:00] VITALS: BP 119/76; TEMP 97.8; O2SAT 99
[2023-08-07] MEDS: FLUOXETINE HCL 20 MG CAPSULE PO SCH (09:03)
[2023-08-07] MEDS: ENSURE ENLIVE 237 ML LIQUID (VANILLA) PO SCH ×3 (09:06→17:38)
[2023-08-07 16:00] VITALS: BP 112/76; TEMP 97.7; O2SAT 96
[2023-08-07] MEDS: MEGESTROL ACETATE 40 MG TABLET PO SCH (17:38)
[2023-08-07 20:00] VITALS: BP 97/76; TEMP 97.9; O2SAT 96
[2023-08-07] MEDS: OLANZAPINE ZYDIS 5 MG TAB.RAPDIS PO SCH (22:00)
[2023-08-07] MEDS: TAMSULOSIN 0.4 MG CAP.SR.24H PO SCH (22:00)
[2023-08-08 08:00] VITALS: BP 120/81; TEMP 98; O2SAT 98
[2023-08-08] MEDS: ENSURE ENLIVE 237 ML LIQUID (VANILLA) PO SCH ×3 (08:00→17:00)
[2023-08-08] MEDS: MEGESTROL ACETATE 40 MG TABLET PO SCH ×2 (08:50→16:44)
[2023-08-08] MEDS: LORAZEPAM 0.5 MG TABLET PO SCH ×3 (08:50→16:44)
[2023-08-08] MEDS: FLUOXETINE HCL 20 MG CAPSULE PO SCH (08:50)
[2023-08-08 15:44] LABS: CALCIUM, SERUM 8.8 mg/dL (8.5-10.1); CREATININE 0.8 mg/dL (0.6-1.3); MAGNESIUM 2.1 mg/dL (1.8-2.4); POTASSIUM 3.8 mmol/L (3.5-5.1)
[2023-08-08 16:00] VITALS: BP 92/67; TEMP 98.2; O2SAT 94
[2023-08-08 20:00] VITALS: BP 133/74; TEMP 98.6; O2SAT 97
[2023-08-08] MEDS: TAMSULOSIN 0.4 MG CAP.SR.24H PO SCH (22:04)
[2023-08-08] MEDS: OLANZAPINE ZYDIS 5 MG TAB.RAPDIS PO SCH (22:04)
[2023-08-09 08:00] VITALS: BP 118/75; TEMP 97.6; O2SAT 99
[2023-08-09] MEDS: ENSURE ENLIVE 237 ML LIQUID (VANILLA) PO SCH ×3 (08:10→16:32)
[2023-08-09] MEDS: LORAZEPAM 0.5 MG TABLET PO SCH ×2 (09:00→12:42)
[2023-08-09] MEDS: MEGESTROL ACETATE 40 MG TABLET PO SCH ×2 (09:19→16:32)
[2023-08-09] MEDS: FLUOXETINE HCL 20 MG CAPSULE PO SCH (09:19)
[2023-08-09 16:00] VITALS: BP 110/77; TEMP 98.1; O2SAT 98
[2023-08-09] MEDS: LORAZEPAM 1 MG TABLET PO SCH (17:57)
[2023-08-09 20:30] VITALS: BP 99/71; TEMP 98.2; O2SAT 100
[2023-08-09] MEDS: TAMSULOSIN 0.4 MG CAP.SR.24H PO SCH (21:27)
[2023-08-09] MEDS ORDERED: OLANZAPINE ZYDIS 5 MG TAB.RAPDIS PO SCH (22:00)
[2023-08-10 08:00] VITALS: BP 101/76; TEMP 98.6; O2SAT 99
[2023-08-10] MEDS: ENSURE ENLIVE 237 ML LIQUID (VANILLA) PO SCH ×3 (08:00→16:01)
[2023-08-10] MEDS: FLUOXETINE HCL 20 MG CAPSULE PO SCH (08:53)
[2023-08-10] MEDS: MEGESTROL ACETATE 40 MG TABLET PO SCH ×2 (08:53→16:01)
[2023-08-10] MEDS: LORAZEPAM 1 MG TABLET PO SCH ×3 (09:00→16:41)
[2023-08-10 16:00] VITALS: BP 100/80; TEMP 97.8; O2SAT 100
[2023-08-10 20:24] VITALS: BP 100/67; TEMP 98.4; O2SAT 96
[2023-08-10] MEDS: TAMSULOSIN 0.4 MG CAP.SR.24H PO SCH (21:25)
[2023-08-10] MEDS ORDERED: OLANZAPINE ZYDIS 5 MG TAB.RAPDIS PO SCH (22:00)
[2023-08-11 08:00] VITALS: BP 91/61; TEMP 97.4; O2SAT 96
[2023-08-11] MEDS: ENSURE ENLIVE 237 ML LIQUID (VANILLA) PO SCH ×3 (08:00→17:12)
[2023-08-11] MEDS: FLUOXETINE HCL 20 MG CAPSULE PO SCH (09:29)
[2023-08-11] MEDS: LORAZEPAM 1 MG TABLET PO SCH (09:30)
[2023-08-11] MEDS: MEGESTROL ACETATE 40 MG TABLET PO SCH ×2 (09:30→17:11)
[2023-08-11] MEDS ORDERED: LORAZEPAM 0.5 MG TABLET PO PRN (10:30)
[2023-08-11 16:00] VITALS: BP 107/70; TEMP 98.9; O2SAT 97
[2023-08-11 21:35] VITALS: BP 101/75; TEMP 97.6; O2SAT 97
[2023-08-11] MEDS: OLANZAPINE ZYDIS 5 MG TAB.RAPDIS PO SCH (21:50)
[2023-08-11] MEDS: TAMSULOSIN 0.4 MG CAP.SR.24H PO SCH (21:50)
[2023-08-12 08:00] VITALS: BP 118/78; TEMP 98.8; O2SAT 98
[2023-08-12] MEDS: FLUOXETINE HCL 20 MG CAPSULE PO SCH (08:23)
[2023-08-12] MEDS: MEGESTROL ACETATE 40 MG TABLET PO SCH ×2 (08:23→17:08)
[2023-08-12] MEDS: ENSURE ENLIVE 237 ML LIQUID (VANILLA) PO SCH ×3 (10:17→17:08)
[2023-08-12 16:00] VITALS: BP 94/65; TEMP 97.9; O2SAT 96
[2023-08-12 20:28] VITALS: BP 98/61; TEMP 99.3; O2SAT 96
[2023-08-12] MEDS: TAMSULOSIN 0.4 MG CAP.SR.24H PO SCH (22:16)
[2023-08-12] MEDS: OLANZAPINE ZYDIS 5 MG TAB.RAPDIS PO SCH (22:17)
[2023-08-13 08:00] VITALS: BP 130/75; TEMP 97.9; O2SAT 96
[2023-08-13] MEDS: MEGESTROL ACETATE 40 MG TABLET PO SCH ×2 (08:47→16:30)
[2023-08-13] MEDS: FLUOXETINE HCL 20 MG CAPSULE PO SCH (08:47)
[2023-08-13] MEDS: ENSURE ENLIVE 237 ML LIQUID (VANILLA) PO SCH ×3 (08:49→16:29)
[2023-08-13 16:00] VITALS: BP 91/66; TEMP 97.8; O2SAT 98
[2023-08-13 20:00] VITALS: BP 103/72; TEMP 97.6; O2SAT 97
[2023-08-13] MEDS: OLANZAPINE ZYDIS 5 MG TAB.RAPDIS PO SCH (21:37)
[2023-08-13] MEDS: TAMSULOSIN 0.4 MG CAP.SR.24H PO SCH (21:37)
[2023-08-14 08:00] VITALS: BP 115/74; TEMP 97.7; O2SAT 98
[2023-08-14] MEDS: ENSURE ENLIVE 237 ML LIQUID (VANILLA) PO SCH ×2 (08:05→12:06)
[2023-08-14] MEDS: MEGESTROL ACETATE 40 MG TABLET PO SCH (08:06)
[2023-08-14] MEDS: FLUOXETINE HCL 20 MG CAPSULE PO SCH (08:06)
[2023-08-14] MEDS ORDERED: LORAZEPAM 1 MG TABLET PO ONE (14:00)
== END 2023-08-14 15:45 | DRG 885 ==
LOC: GPS 00:39
PROVIDERS: ADMIT Psychiatry & Neurology Psychosomatic Medicine; ATTEND Nurse Practitioner Family
DX: F33.3 Major depressive disorder, recurrent, severe with psychotic symptoms (principal); E43 Unspecified severe protein-calorie malnutrition; N17.0 Acute kidney failure with tubular necrosis; E87.20 Acidosis, unspecified; R64 Cachexia; Z68.1 Body mass index [BMI] 19.9 or less, adult; F29 Unspecified psychosis not due to a substance or known physiological condition; F41.9 Anxiety disorder, unspecified; E87.6 Hypokalemia; R62.7 Adult failure to thrive; N40.0 Benign prostatic hyperplasia without lower urinary tract symptoms; E80.6 Other disorders of bilirubin metabolism; Z73.6 Limitation of activities due to disability
CPT/HCPCS: 36415; 80048-TC; 80053-TC; 80061-TC; 83735-TC; 84100-TC; 84132-TC; 85025-TC; 87081-TC; 97110-TC; 97116-TC